=== PATIENT | male | born 1995 | race Two or more races ===

== ENCOUNTER 2019-03-05 08:19 | Emergency (ER) | payer SELFPAY ==
[~2019-03-05] VITALS: Ht 195.6 cm; Wt 84.4 kg
--- NOTE | 2019-03-05 09:03 | NUR ---
The patient came back from [place] 02/15/2019 The symptoms developed 02/22/2019 : 1) cough 2) fever and chills 3) c/o swollen lymph nodes - right posterior infra auricular (back of his ear) 4) Bilateral eye pain
[2019-03-05 09:48] LABS: BASOPHILS # (AUTO) 0.1 /CMM (0.0-0.2); HEMATOCRIT 43 % (39-51); HEMOGLOBIN 14.7 g/dL (13.5-17.5); LYMPHOCYTES # (AUTO) 1.5 /CMM (0.8-4.8); LYMPHOCYTES % (AUTO) 29.5 % (20.0-44.0); MEAN CORPUSCULAR HGB CONC 35 g/dl (31.0-36.0); MEAN CORPUSCULAR VOLUME 85 fL (80-96); MONOCYTES # (AUTO) 0.5 /CMM (0.1-1.30); MONOCYTES % (AUTO) 10.7 % (2.0-12.0); NEUTROPHILS # (AUTO) 2.8 /CMM (1.8-8.9); NEUTROPHILS % (AUTO) 55.8 % (43.0-81.0); PLATELET COUNT (AUTO) 355 /CMM (150-450); RED BLOOD CELL COUNT(AUTO) 5.01 MIL/uL (4.5-6.0)
[2019-03-05 09:56] LABS: CALCIUM, SERUM 9.4 mg/dL (8.5-10.1); POTASSIUM 4.5 mmol/L (3.5-5.1)
[2019-03-05 11:40] VITALS: BP 121/66
--- NOTE | 2019-03-05 11:40 | NUR ---
Patient discharged to home in stable condition. Written and verbal after care instructions given. Patient verbalizes understanding of instruction. Prescription given to patient.
== END 2019-03-05 11:40 | disposition home or self-care (01) ==
LOC: ER 08:30
DX: J06.9 Acute upper respiratory infection, unspecified (principal)
CPT/HCPCS: 36415; 71045-TC; 80048-TC; 85025-TC